=== PATIENT | female | born 1940 | race Caucasian/White ===

== ENCOUNTER 2018-02-07 13:55 | Observation (INO) ==
--- NOTE | 2018-02-07 14:07 | Emergency Department Note ---
Disposition Clinical Impression: Syncope, Orthostasis Disposition: Admitted As Inpatient Instructions: Dehydration (ED), Syncope (ED), Hypotension (ED) Referrals: Stephanie Nuñez MD [Primary Care Provider] - Forms: ED Satisfaction Letter General Adult HPI - General Chief complaint: ED Syncope Stated complaint: syncopal episode Time Seen by Provider: 02/07/18 14:03 - History of Present Illness Pain Scale: 0 - Related Data Allergies Allergy/AdvReac Type Severity Reaction Status Date / Time metronidazole [From Flagyl] Allergy Seizure Verified 02/07/18 14:03 morphine Allergy Palpitation Verified 02/07/18 14:03 s Sulfa (Sulfonamide Allergy Anaphylaxis Verified 02/07/18 14:03 Antibiotics) most genergic drugs Allergy Anaphylaxis Uncoded 03/01/16 11:46 pt states mutiple allergies Allergy Anaphylaxis Uncoded 02/07/18 16:53 she kno steroids AdvReac Dizziness Uncoded 02/07/18 16:53 Past Medical History - Past Medical History Medical history: Reports: arthritis, CVA, hyperlipidemia, hypertension, thyroid disease Psychiatric history: Reports: other - Social History Smoking Status: Never smoker Smokeless Tobacco Status: No Alcohol use: Reports: none Drug use: Reports: none Course Vital Signs Temperature 98.4 F 02/07/18 14:01 Pulse Rate 64 02/07/18 14:01 Respiratory Rate 16 02/07/18 14:01 Blood Pressure 118/72 02/07/18 14:01 O2 Sat by Pulse Oximetry 96 02/07/18 14:01 Temperature 98.4 F 02/07/18 14:30 Pulse Rate 78 02/07/18 16:12 Respiratory Rate 16 02/07/18 14:30 Blood Pressure 137/54 02/07/18 16:12 O2 Sat by Pulse Oximetry 96 02/07/18 14:30 Oxygen Delivery Oxygen Delivery Room Air Medical Decision Making - Lab Data Result diagrams: 02/07/18 14:20 02/07/18 14:20 Lab Results 02/07/18 02/07/18 Range/Units 14:20 14:20 WBC 4.1 L (4.3-11.1) K/mcL RBC 4.38 (3.82-4.97) M/mcL Hgb 14.0 (11.5-15.4) g/dL Hct 40.7 (35.3-44.9) % MCV 92.9 (83.0-100.0) fL MCH 32.0 (28.0-33.3) pg MCHC 34.4 (31.6-35.5) g/dL RDW 12.5 (11.5-14.5) % Plt Count 171 (140-400) K/mcL MPV 10.4 (9.4-12.4) fL Immature Gran % 0.2 (0-4) % Seg Neutrophils % 58.6 % Lymphocytes % 26.2 % Monocytes % 12.4 % Eosinophils % 2.4 % Basophils % 0.2 % Neutrophils # 2.4 (1.6-8.9) K/mcL Lymphocytes # 1.1 (0.6-4.6) K/mcL Monocytes # 0.5 (0.0-1.3) K/mcL Eosinophils # 0.1 (0.0-0.6) K/mcL Basophils # 0.0 (0.0-0.2) K/mcL Sodium 138 (136-145) mEq/L Potassium 4.1 (3.5-5.1) mEq/L Chloride 106 (98-107) mEq/L Carbon Dioxide 24 (23-29) mEq/L BUN 13 (8-23) mg/dL Creatinine 0.57 L (0.60-1.20) mg/dL Est GFR ( Amer) > 60 (> 60) Est GFR (Non-Af Amer) > 60 (> 60) BUN/Creatinine Ratio 23 (6-26) Glucose 95 (70-105) mg/dL Calculated Osmolality 286 (280-300) Calcium 8.9 (8.6-10.3) mg/dL Troponin I < 0.03 (< 0.04) ng/mL TSH 0.454 (0.340-5.600) mcIU/mL Attestation Statement - Attestation Attestation: I examined this patient and my medical decision-making was reviewed with the Resident Physician. I agree with the documented findings, disposition and treatment plan as described except to the extent set forth below. [id number] time provided Patient sustained a syncopal event just prior to arrival. She appears in no acute distress upon arrival by wheelchair. This patient was evaluated in conjunction with the resident physician 16:50: The patient is dizzy and near syncopal upon standing. Labs reviewed by me. Given ongoing symptomatology we will request admission to the medicine service
[2018-02-07] MEDS ORDERED: 0.9 % Sodium Chloride 1,000 ML IVC ONE (14:20)
--- NOTE | 2018-02-07 14:26 | Emergency Department Note ---
Disposition Clinical Impression: Orthostasis Syncope Qualifiers: Syncope type: unspecified Qualified Code(s): R55 - Syncope and collapse Disposition: Admitted As Inpatient Instructions: Dehydration (ED), Syncope (ED), Hypotension (ED) Referrals: Stephanie Nuñez MD [Primary Care Provider] - Forms: ED Satisfaction Letter General Adult HPI - General Chief complaint: ED Syncope Stated complaint: syncopal episode Time Seen by Provider: 02/07/18 14:03 Source: patient Mode of arrival: private vehicle Limitations: no limitations Nursing Notes Reviewed: Yes Vital Signs Reviewed: Yes - History of Present Illness HPI Narrative: Patient is an 78-year-old female with past medical history including hypertension, hyperlipidemia, CVA, who presents with a chief complaint of syncope. Patient states she was recently taken off her Tenormin she was having episodes of hypotension and lightheadedness. She states blood pressures at home have been increased in size systolic pressure 160. She told her physician this and he told her to restart her Tenormin. She states she restarted this 2 days ago. Today she woke up around 0 920 into her living room she is feeling lightheaded. She complains of tunnel vision, blurry vision and nausea. She sat down in the chair and she believes she passed out for a period of time. She is not sure what happened. She denies any falls or hitting her head. She also complains of nonradiating mild substernal chest discomfort after the episode. No shortness of breath. She was able to then get up and use the restroom. When she got up from the toilet she again felt very lightheaded but did not pass out at this time. She called her friend to take her to the emergency department. Pain Scale: 0 - Related Data Home Medications Medication Instructions Recorded Confirmed Atenolol [Tenormin] 25 mg PO DAILY 02/07/18 02/07/18 LORazepam [Ativan] 0.5 mg PO BID PRN 02/07/18 02/07/18 Levothyroxine [Synthroid] 100 mcg PO 0630 02/07/18 02/07/18 Phenytoin ER [Dilantin ER] 200 mg PO BID 02/07/18 02/07/18 Allergies Allergy/AdvReac Type Severity Reaction Status Date / Time metronidazole [From Flagyl] Allergy Seizure Verified 02/07/18 14:03 morphine Allergy Palpitation Verified 02/07/18 14:03 s Sulfa (Sulfonamide Allergy Anaphylaxis Verified 02/07/18 14:03 Antibiotics) most genergic drugs Allergy Anaphylaxis Uncoded 03/01/16 11:46 pt states mutiple allergies Allergy Anaphylaxis Uncoded 02/07/18 16:53 she kno steroids AdvReac Dizziness Uncoded 02/07/18 16:53 All systems ED: reviewed and negative except as stated. Review of Systems: As Per HPI Constitutional: Denies: fever, chills Eyes: Reports: other (tunnel vision). Denies: eye pain ENT ED: Denies: throat pain, congestion Cardiovascular: Reports: chest pain, syncope. Denies: palpitations Respiratory: Denies: cough, dyspnea Gastrointestinal: Reports: nausea. Denies: abdominal pain, vomiting, diarrhea Genitourinary: Denies: urgency, dysuria Musculoskeletal: Denies: back pain Integumentary: Denies: rash Neurological: Denies: headache, paresthesias, abnormal gait Allergic/Immunologic: Denies: itchy eyes Past Medical History - Past Medical History Attestation: Yes The following information was validated with the patient. Source: patient Medical history: Reports: arthritis, CVA, hyperlipidemia, hypertension, thyroid disease Psychiatric history: Reports: other - Social History Smoking Status: Never smoker Smokeless Tobacco Status: No Alcohol use: Reports: none Drug use: Reports: none Physical Exam - General Limitations: no limitations General appearance: alert, in no apparent distress - Head Head exam: atraumatic, normocephalic - Eye Eye exam: Present: normal appearance, PERRL, EOMI - Chest Chest inspection: Present: symmetric chest wall rise. Absent: tenderness - Respiratory Respiratory exam: Present: normal lung sounds bilaterally. Absent: respiratory distress, wheezes, accessory muscle use - Cardiovascular Cardiovascular exam: Present: regular rate, normal rhythm, normal heart sounds, other (no JVD. Radial pulss equal bilaterally) - Abdominal Exam Abdominal exam: Present: soft, Non-Tender. Absent: distention - Extremities Exam Extremities exam: Absent: tenderness, pedal edema - Neurological Exam Neurological exam: Present: alert, oriented X3, CN II-XII intact - Expanded Neurological Exam Patient oriented to: Present: person, place, time Speech: Present: fluid speech Cranial nerves: EOM function (II, III, IV, ): Normal, facial sensation (V): Normal, facial palsy (VII): Normal, spinal accessory function (XI): Normal, tongue deviation (XII): Normal Cerebellar function: finger to nose: Normal, heel to weller: Normal Motor strength - LUE: 5/5 Motor strength - RUE: 5/5 Motor strength - LLE: 5/5 Motor strength - RLE: 5/5 Upper motor neuron exam: erin neglect: Absent bilaterally Sensory exam upper extremity: light touch: Normal Sensory exam lower extremity: light touch: Normal - Psychiatric Psychiatric exam: Present: normal affect, normal mood - Skin Skin exam: Present: warm, dry. Absent: diaphoresis, pallor Course Vital Signs Temperature 98.4 F 02/07/18 14:01 Pulse Rate 64 02/07/18 14:01 Respiratory Rate 16 02/07/18 14:01 Blood Pressure 118/72 02/07/18 14:01 O2 Sat by Pulse Oximetry 96 02/07/18 14:01 Temperature 98.4 F 02/07/18 14:30 Pulse Rate 78 02/07/18 16:12 Respiratory Rate 16 02/07/18 14:30 Blood Pressure 137/54 02/07/18 16:12 O2 Sat by Pulse Oximetry 96 02/07/18 14:30 Oxygen Delivery Oxygen Delivery Room Air Medical Decision Making - MDM Narrative Medical decision making narrative: Patient is presenting with syncope. She has restarted her Tenormin 2 days ago. It was initially discontinued for hypotension. Her symptoms are most likely secondary to orthostatic hypotension from the Tenormin. We will obtain orthostatic blood pressures. Give her IV fluids. Check CBC, BMP, troponin, EKG. Patient is on synthroid and will also check TSH. Aspirin given as patient is complaining of mild chest discomfort. Her HEART score is a 4. Do not suspect a cardiac event given the presentation of her symptoms. EKG with new right bundle branch block compared to previous in November 2017. No evidence of acute ischemia. 15:35 Patient responding to IVFs. She is feeling much better and denies lightheadedness, chest pain, or shortness of breath. Labs reviewed. Troponin is less than 0.03. No electrolyte abnormalities. TSH within normal limits. Patient has remained normotensive while in the ER. We will still need to receive orthostatic vital signs and blood pressures. 16:30 During orthostatic vital signs, the patient became lightheaded which improved with sitting. Ambulated the patient. After approximately 5 steps, the patient became very lightheaded and developed a headache. She states she was going to pass out. She cannot further ambulate. She required additional help bring her back to the bed. Patient did not lose consciousness. Will admit the patient for syncope and orthostatics secondary to beta maninder. Hospitalist consulted. 17:00 Discussed with hospitalist. Will get CXR. No further recommendations. She will be admitted for further workup and management of syncope. - Medical Records Medical records reviewed: Yes I reviewed the patient's medical records. - Lab Data Lab results reviewed: Yes I reviewed the patient's lab results. Result diagrams: 02/07/18 14:20 02/07/18 14:20 Lab Results 02/07/18 02/07/18 Range/Units 14:20 14:20 WBC 4.1 L (4.3-11.1) K/mcL RBC 4.38 (3.82-4.97) M/mcL Hgb 14.0 (11.5-15.4) g/dL Hct 40.7 (35.3-44.9) % MCV 92.9 (83.0-100.0) fL MCH 32.0 (28.0-33.3) pg MCHC 34.4 (31.6-35.5) g/dL RDW 12.5 (11.5-14.5) % Plt Count 171 (140-400) K/mcL MPV 10.4 (9.4-12.4) fL Immature Gran % 0.2 (0-4) % Seg Neutrophils % 58.6 % Lymphocytes % 26.2 % Monocytes % 12.4 % Eosinophils % 2.4 % Basophils % 0.2 % Neutrophils # 2.4 (1.6-8.9) K/mcL Lymphocytes # 1.1 (0.6-4.6) K/mcL Monocytes # 0.5 (0.0-1.3) K/mcL Eosinophils # 0.1 (0.0-0.6) K/mcL Basophils # 0.0 (0.0-0.2) K/mcL Sodium 138 (136-145) mEq/L Potassium 4.1 (3.5-5.1) mEq/L Chloride 106 (98-107) mEq/L Carbon Dioxide 24 (23-29) mEq/L BUN 13 (8-23) mg/dL Creatinine 0.57 L (0.60-1.20) mg/dL Est GFR ( Amer) > 60 (> 60) Est GFR (Non-Af Amer) > 60 (> 60) BUN/Creatinine Ratio 23 (6-26) Glucose 95 (70-105) mg/dL Calculated Osmolality 286 (280-300) Calcium 8.9 (8.6-10.3) mg/dL Troponin I < 0.03 (< 0.04) ng/mL TSH 0.454 (0.340-5.600) mcIU/mL - Radiology Data Radiology results reviewed: Yes I reviewed the patient's radiology results. Chest X-Ray 02/07/18 17:00 IMPRESSION: No evidence of edema or pneumonia. Borderline heart size, unchanged. D/ / Todd Grayson MD / Todd Grayson MD Interpreting Provider: Todd Grayson MD - EKG Data EKG #1 EKG attestation: Yes I reviewed and interpreted this EKG. EKG results narrative: EKG on 02/07/2018 at 1411 shows sinus rhythm with heart rate 60. CA interval 190. QT 428. QTC 428. Right bundle branch block. No evidence of acute ischemia. Compared to EKG on 12/06/2017. The right bundle-branch block is new from prior. Heart Score - Score History: Slightly Suspicious EKG: Normal Age: Greater than 65 Risk Factors: Equal/Greater than 3 risk factor or history of atherosclerotic disease Troponin: Less than normal limit HEART Score Total: 4
[2018-02-07] MEDS ORDERED: Aspirin 325 MG TABLET PO ONE (14:28)
[2018-02-07 15:03] LABS: Basophils % 0.2 %; Eosinophils # 0.1 K/mcL (0.0-0.6); Eosinophils % 2.4 %; Hematocrit 40.7 % (35.3-44.9); Immature Granulocytes % 0.2 % (0-4); Lymphocytes # 1.1 K/mcL (0.6-4.6); Lymphocytes % 26.2 %; Mean Corpuscular HGB Conc 34.4 g/dL (31.6-35.5); Mean Corpuscular Volume 92.9 fL (83.0-100.0); Mean Platelet Volume 10.4 fL (9.4-12.4); Monocytes # 0.5 K/mcL (0.0-1.3); Monocytes % 12.4 %; Neutrophils # 2.4 K/mcL (1.6-8.9); Platelet Count 171 K/mcL (140-400); Red Blood Count 4.38 M/mcL (3.82-4.97); Red Cell Distribution Width 12.5 % (11.5-14.5); Segmented Neutrophils % 58.6 %
[2018-02-07 15:31] LABS: BUN/Creatinine Ratio 23 (6-26); Blood Urea Nitrogen 13 mg/dL (8-23); Calcium 8.9 mg/dL (8.6-10.3); Carbon Dioxide 24 mEq/L (23-29); Chloride 106 mEq/L (98-107); Glucose 95 mg/dL (70-105); Osmolality,Calculated 286 (280-300); Potassium 4.1 mEq/L (3.5-5.1); Sodium 138 mEq/L (136-145); eGFR For Non-African Americans > 60 (> 60)
[2018-02-07 15:32] LABS: Troponin I < 0.03 ng/mL (< 0.04)
[2018-02-07 15:45] LABS: Thyroid Stimulating Hormone 0.454 mcIU/mL (0.340-5.600)
[2018-02-07] MEDS ORDERED: Naloxone 0.4 MG/ML INJ IVP PRN (17:09)
[2018-02-07 17:37] LABS: Phenytoin (Dilantin) 8.9 mcg/mL (10.0-20.0)
--- NOTE | 2018-02-07 17:52 | Internal Med History&Physical ---
Date of Encounter: 02/07/18 Time of Encounter: 17:30 Internal Medicine - H&P: HPI Chief complaint: pre-syncope Admitted From: Home History of present illness: Ms. Rodriguez is a 78 year old female with history of hypertension, hyperlipidemia, CVA without any residual deficits, seizure, presented to the ED with lightheadedness. Patient states that it happened this morning while she was sitting in her front room. She states that she does not have recollection of the events for about 5 minutes but unsure about loss of consciousness. Nevertheless, she did not fall or suffered head injury as she remained sitting. She was recently taken off her Tenormin as she was having episodes of hypotension but was started back on it 3 days ago as her BP started to increase. She has also noted that she is now needing a cane for ambulation for the last 2 minutes and has intermittent tingling and numbness of her legs. Denies any headache, slurring of speech, facial droop, or dysphagia. Denies any chest pain, service of breath, palpitation, orthopnea, PND, or leg swelling. No fever/chills, nausea/vomiting, cough, sputum production, abdominal pain, change in bowel habits, dysuria or sick contacts. In the ED, she was afebrile and hemodynamically stable. Labs were unremarkable except for mild leukopenia. Normal TSH and troponin. She was given 1 L of IV fluid after which she has felt better. She attempted to ambulate but had recurrence of symptoms. She was admitted for further management. Past Med Surg Social Fam HX - Past Medical History Attestation: Yes The following information was validated with the patient. Medical history: arthritis, CVA, hyperlipidemia, hypertension, seizures, thyroid disease Psychiatric history: other - Past Surgical History Additional surgical history: Multiple Tumors Removed. Knee Replacement. Bladder Tuck. Foot Surgery - Social History Smoking Status: Never smoker Smokeless Tobacco Status: No Alcohol use: none Drug use: none Internal Medicine - H&P: Meds Atenolol [Tenormin] 25 mg PO DAILY 02/07/18 [History] LORazepam [Ativan] 0.5 mg PO BID PRN 02/07/18 [History] Levothyroxine [Synthroid] 100 mcg PO 0630 02/07/18 [History] Phenytoin ER [Dilantin ER] 200 mg PO BID 02/07/18 [History] 3 Allergy/AdvReac Type Severity Reaction Status Date / Time metronidazole [From Flagyl] Allergy Seizure Verified 02/07/18 14:03 morphine Allergy Palpitation Verified 02/07/18 14:03 s Sulfa (Sulfonamide Allergy Anaphylaxis Verified 02/07/18 14:03 Antibiotics) most genergic drugs Allergy Anaphylaxis Uncoded 03/01/16 11:46 pt states mutiple allergies Allergy Anaphylaxis Uncoded 02/07/18 16:53 she kno steroids AdvReac Dizziness Uncoded 02/07/18 16:53 All Systems PM: A 10-system review of systems was performed and is negative for pertinent findings except as documented above in the HPI. - Constitutional Vitals: Temp Pulse Resp BP Pulse Ox 98.4 F 78 16 137/54 96 02/07/18 14:30 02/07/18 16:12 02/07/18 14:30 02/07/18 16:12 02/07/18 14:30 Exam: General: Alert and oriented, not in acute distress. HEENT:EOM, pupils equal, round and reactive. Anicteric sclera Cardiovascular:Normal S1 & S2, No JVD. Pulse regular. Lungs: clear to auscultation, no wheezes/rales Abdomen:Soft, non-tender, no rigidity. Extremities:No deformity or swelling Neurological: CN II-XII intact, power and sensation full on all 4 limbs. No pronator drift. No cerebellar signs. Babinski downgoing bilaterally. Skin:Normal color, no rash, no lesions. Pulses:Carotid and radial pulses normal +2. Rest of the physical exam is non contributory Internal Med - H&P Results - Labs CBC & Chem 7: 02/07/18 14:20 02/07/18 14:20 - Assessment and plan (1) Pre-syncope Current Visit: Yes Status: Acute Assessment and plan: Unclear etiology, may have been related to orthostasis but the orthostatic vitals were checked (which was normal) after IV fluid was given. No evidence of acute kidney injury however. Complains of LE numbness and tingling, will check B12 check 1 more troponin to rule out ACS Last echo 2 years showed mild AR, repeat telemetry overnight PT/OT (2) Hypertension Current Visit: Yes Status: Acute Assessment and plan: Monitor off Tenormin When necessary labetalol Qualifiers: Hypertension type: essential hypertension Qualified Code(s): I10 - Essential (primary) hypertension (3) Seizure Current Visit: Yes Status: Acute Assessment and plan: dilantin level low normal continue phenytoin (4) DVT prophylaxis Current Visit: Yes Status: Acute Assessment and plan: SQ heparin - Time Spent With Patient Total time spent is greater than 50% in coordination of care (as documented) at patient's floor/unit and/or counseling patient:
[2018-02-07] MEDS ORDERED: *HR* Labetalol 20 MG/4 ML SYRINGE IVP PRN (17:55)
[2018-02-07] MEDS: *HR* Heparin 5,000 UNIT/ML VIAL SQ SCH (21:29)
[2018-02-08] MEDS: *HR* Heparin 5,000 UNIT/ML VIAL SQ SCH ×2 (05:52→17:33)
[2018-02-08 06:46] LABS: Basophils % 0.2 %; Eosinophils # 0.1 K/mcL (0.0-0.6); Eosinophils % 2.9 %; Hematocrit 38.6 % (35.3-44.9); Hemoglobin 13.2 g/dL (11.5-15.4); Immature Granulocytes % 0.2 % (0-4); Lymphocytes # 1.9 K/mcL (0.6-4.6); Lymphocytes % 39.7 %; Mean Corpuscular HGB Conc 34.2 g/dL (31.6-35.5); Mean Corpuscular Hemoglobin 31.6 pg (28.0-33.3); Mean Corpuscular Volume 92.3 fL (83.0-100.0); Mean Platelet Volume 10.7 fL (9.4-12.4); Monocytes # 0.5 K/mcL (0.0-1.3); Monocytes % 9.5 %; Neutrophils # 2.3 K/mcL (1.6-8.9); Platelet Count 157 K/mcL (140-400); Red Blood Count 4.18 M/mcL (3.82-4.97); Red Cell Distribution Width 12.5 % (11.5-14.5); Segmented Neutrophils % 47.5 %
[2018-02-08] MEDS: Cyanocobalamin (B-12) 1,000 MCG TABLET PO SCH (08:51)
--- NOTE | 2018-02-08 11:00 | Internal Med Progress Note ---
Hospitalist Progress Note - Encounter Date of Encounter: 02/08/18 Time of Encounter: 09:25 - Subjective Interval History: Reports no new complaints, has not ambulated with the therapist yet. No chest pain, palpitation, worsening lightheadedness, or cough. - Exam Vitals: Temp Pulse Resp BP Pulse Ox 98.0 F 58 16 135/65 94 02/08/18 07:26 02/08/18 07:26 02/08/18 07:26 02/08/18 07:26 02/08/18 08:56 Exam: General: Alert and oriented, not in acute distress. Eyes: PERRL, no nystagmus Cardiovascular:Normal S1 & S2, No JVD. Pulse regular. Lungs: clear to auscultation, no wheezes/rales Abdomen:Soft, non-tender, no rigidity. Extremities:No deformity or swelling Neurological: CN II-XII intact, power and sensation full on all 4 limbs. No pronator drift. No cerebellar signs. Babinski downgoing bilaterally. - Assessment and Plan (1) Pre-syncope Current Visit: Yes Status: Acute Assessment and Plan: Unclear etiology, may have been related to orthostasis but the orthostatic vitals were checked (which was normal) after IV fluid was given. No evidence of acute kidney injury however. ACS ruled out Complains of LE numbness and tingling, B12 is noted to be low possibly related to her peripheral neuropathy, decreased proprioception, and orthostasis Start B12 supplementation Echo pending PT/OT for discharge planning (2) Hypertension Current Visit: Yes Status: Acute Assessment and Plan: normal off Tenormin When necessary labetalol (3) Seizure Current Visit: Yes Status: Acute Assessment and Plan: dilantin level low normal, which is not new forthe patient continue phenytoin (4) DVT prophylaxis Current Visit: Yes Status: Acute Assessment and Plan: SQ heparin - Time Spent with Patient Total time spent is greater than 50% in coordination of care (as documented) at patient's floor/unit and/or counseling patient: Plan of Care Discussed with: patient Internal Medicine: Result - Labs CBC & Chem 7: 02/08/18 06:27 02/07/18 14:20 Labs: Short CBC 02/08/18 Range/Units 06:27 WBC 4.9 (4.3-11.1) K/mcL Hgb 13.2 (11.5-15.4) g/dL Hct 38.6 (35.3-44.9) % Plt Count 157 (140-400) K/mcL Neutrophils # 2.3 (1.6-8.9) K/mcL Cardiac Enzymes 02/07/18 Range/Units 21:03 Troponin I < 0.03 (< 0.04) ng/mL Consult Discharge Plan - Plan Referrals: Stephanie Nuñez MD [Primary Care Provider] - (Hospital follow up appointment requested. Office will call you with date and time of appointment. ) (2) Hypertension Qualifiers: Hypertension type: essential hypertension Qualified Code(s): I10 - Essential (primary) hypertension
[2018-02-08] MEDS: *HR* LORazepam 0.5 MG TABLET PO PRN ×2 (17:41→23:08)
[2018-02-09] MEDS: *HR* Heparin 5,000 UNIT/ML VIAL SQ SCH (05:34)
[2018-02-09] MEDS: Cyanocobalamin (B-12) 1,000 MCG TABLET PO SCH (10:10)
[2018-02-09 11:45] VITALS: BP 138/64
--- NOTE | 2018-02-09 11:52 | Discharge Summary ---
- NOTES TO OUTPATIENT PROVIDER Notes to Outpatient Provider: Patient was admitted for near-fall episode secondary to bilateral lower extremity numbness/paresthesia due to newly diagnosed B12 deficiency. PT/OT deemed that patient was safe to be discharged back home without further need for therapy. Started on oral supplementation with outpatient follow up. Date of Encounter: 02/09/18 Time of Encounter: 10:30 - Discharge Diagnosis (1) Pre-syncope Priority: Primary Status: Acute (2) Hypertension Priority: Secondary Status: Acute Qualifiers: Hypertension type: essential hypertension Qualified Code(s): I10 - Essential (primary) hypertension (3) Seizure Priority: Secondary Status: Acute (4) Vitamin B12 deficiency Priority: Secondary Status: Acute (5) DVT prophylaxis Priority: Secondary Status: Acute Hospital course: Ms. Rodriguez is a 78 year old female with PMHx of HTN, HLD, CVA without residual deficits, seizure, was admitted for near-fall episode secondary to bilateral lower extremity numbness/paresthesia due to newly diagnosed B12 deficiency. PT/ OT deemed that patient was safe to be discharged back home without further need for therapy. Started on oral supplementation with outpatient follow up. Discharge discussed with: patient, nurse - Time Spent with Patient Total time spent providing and/or coordinating discharge services: Greater than 30 minutes - Discharge Medications Prescriptions: Cyanocobalamin (B-12) [Vitamin B12] 1,000 mcg PO DAILY #30 tablet Home Medications: LORazepam [Ativan] 0.5 mg PO BID PRN 02/07/18 [History] Levothyroxine [Synthroid] 100 mcg PO 0630 02/07/18 [History] Phenytoin ER [Dilantin ER] 200 mg PO BID 02/07/18 [History] Cyanocobalamin (B-12) [Vitamin B12] 1,000 mcg PO DAILY #30 tablet 02/09/18 [Rx] Allergies/Adverse Reactions: 3 Allergy/AdvReac Type Severity Reaction Status Date / Time metronidazole [From Flagyl] Allergy Seizure Verified 02/07/18 14:03 morphine Allergy Palpitation Verified 02/07/18 14:03 s Sulfa (Sulfonamide Allergy Anaphylaxis Verified 02/07/18 14:03 Antibiotics) most genergic drugs Allergy Anaphylaxis Uncoded 03/01/16 11:46 pt states mutiple allergies Allergy Anaphylaxis Uncoded 02/07/18 16:53 she kno steroids AdvReac Dizziness Uncoded 02/07/18 16:53 Date of admission: 02/07/18 17:19 Primary care physician: Stephanie Nuñez MD - Constitutional Vitals: Temp Pulse Resp BP Pulse Ox 97.8 F 76 18 138/64 97 02/09/18 11:43 02/09/18 11:43 02/09/18 11:43 02/09/18 11:43 02/09/18 11:43 Exam: General: Alert and oriented, not in acute distress. Eyes: PERRL, no nystagmus Cardiovascular:Normal S1 & S2, No JVD. Pulse regular. Lungs: clear to auscultation, no wheezes/rales Abdomen:Soft, non-tender, no rigidity. Extremities:No deformity or swelling Neurological: CN II-XII intact, power and sensation full on all 4 limbs. No pronator drift. No cerebellar signs. Babinski downgoing bilaterally. - Patient Status Disposition: Home, Self-Care Condition: Good Overall status at discharge: patient is progressing back to baseline - Discharge Instructions Instructions: Chronic Hypertension (DC) Follow Up With: Stephanie Nuñez MD [Primary Care Provider] - (Hospital follow up appointment requested. Office will call you with date and time of appointment. ) - Diet and Activity Activity: resume usual activities as tolerated Diet: advance to your usual diet
--- NOTE | 2018-02-10 18:00 | Electrocardiograph Report ---
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
== END 2018-02-09 14:13 | disposition home or self-care (01) ==
LOC: 3BNU 13:55 → EMEROOARM 13:55 → SUATTDRO 17:19 → 3BNU 18:46
PROVIDERS: ADMIT Student in an Organized Health Care Education/Training Program; ATTEND Internal Medicine

== ENCOUNTER 2018-09-27 12:09 | Observation (INO) ==
[2018-09-27] MEDS ORDERED: Isovue-370 500 ML BOTTLE IVP ONE (13:04)
[2018-09-27] MEDS ORDERED: Aspirin 81 MG TAB.CHEW PO ONE (13:07)
--- NOTE | 2018-09-27 13:37 | Emergency Department Note ---
Disposition Clinical Impression: Facial cellulitis Disposition: Admitted As Inpatient Condition: Fair Time of Disposition: 16:30 General Adult HPI - General Chief complaint: ED Chest Pain Stated complaint: Chest Pain Fever Rash Time Seen by Provider: 09/27/18 12:17 Source: patient Mode of arrival: private vehicle Limitations: no limitations Nursing Notes Reviewed: Yes Vital Signs Reviewed: Yes - History of Present Illness HPI Narrative: 78-year-old female with a past medical history of irregular heart rate used to be rate controlled but has not been for quite some time, they came to the emergency department today because she noted some right-sided facial redness and swelling, as well as fevers and chills at home. She is also reporting some midsternal chest pressure, but states that it is not pain. Patient states that she first noted that the right side of her face was red and swollen last night around midnight. Patient is also complaining of fevers that she measured at home at 101.1. She states that she has not taken any pain medication. She is complaining of pain with moving her eyes. Pain Scale: 8 - Related Data Home Medications Medication Instructions Recorded Confirmed LORazepam [Ativan] 0.5 mg PO BID PRN 02/07/18 02/07/18 Levothyroxine [Synthroid] 100 mcg PO 0630 02/07/18 02/07/18 Phenytoin ER [Dilantin ER] 200 mg PO BID 02/07/18 02/07/18 Previous Rx's Medication Instructions Recorded Cyanocobalamin (B-12) [Vitamin B12] 1,000 mcg PO DAILY #30 tablet 02/09/18 Allergies Allergy/AdvReac Type Severity Reaction Status Date / Time metronidazole [From Flagyl] Allergy Seizure Verified 02/07/18 14:03 morphine Allergy Palpitation Verified 02/07/18 14:03 s Sulfa (Sulfonamide Allergy Anaphylaxis Verified 02/07/18 14:03 Antibiotics) most genergic drugs Allergy Anaphylaxis Uncoded 03/01/16 11:46 pt states mutiple allergies Allergy Anaphylaxis Uncoded 02/07/18 16:53 she kno steroids AdvReac Dizziness Uncoded 02/07/18 16:53 Review of Systems: All systems ED: reviewed and negative except as stated. Constitutional: Reports: fever, chills ENT ED: Denies: ear pain, throat pain Cardiovascular: Denies: chest pain, palpitations Reports: chest pressure Respiratory: Denies: cough, dyspnea Gastrointestinal: Denies: abdominal pain, nausea, vomiting, diarrhea, constipation Genitourinary: Denies: urgency, dysuria, frequency Musculoskeletal: Denies: neck pain Reports; back pain Integumentary: Denies: rash, abrasion Neurological: Denies: headache, weakness, numbness, Reports: paresthesias in raman feet, chronic Psychiatric: Denies: anxiety, depression Endocrine: Denies: fatigue, heat or cold intolerance Hematological/Lymphatic: Denies: easy bleeding, easy bruising Allergic/Immunologic: Denies: facial swelling, urticaria Past Medical History - Past Medical History Attestation: Yes The following information was validated with the patient. Medical history: Reports: arthritis, CVA, hyperlipidemia, hypertension, seizures, thyroid disease Psychiatric history: Reports: other - Social History Smoking Status: Never smoker Smokeless Tobacco Status: No Alcohol use: Reports: none Drug use: Reports: none Physical Exam General: A&O x 3. No acute distress. Well developed, well nourished. Head: Right side of face erythematous and swollen from mastoid process to mediolateral aspect of her face. Complete involvement of the pinna. Tenderness over right mastoid process. ENT: No conjunctival injection, no scleral icterus. PERRLA. Pain with EOMI. Oropharynx non- erythematous. mucous membranes moist. Raman TMs non-erythematous, no bulging. Right TM has scant injection. Neuro: No focal deficits, no speech deficit, no facial droop, mentating well. BUE/BLE Str 5/5. Pulm: Lungs CTAB A/P. No wheezes, rales, ronchi. Cardio: RRR no m/r/g. Chest not tender to palpation. Abd: Soft, non-distended. Normoactive bowel sounds. Non-tender to palpation. No guarding. Non rigid. Extremities: Radial pulses 2+ raman, dorsalis pedis/posterior tibialis 2+ raman. No LE edema. No cyanosis, clubbing. Skin: warm, dry, intact. No rashes. Psych: Appropriate mood and affect. Answers questions appropriately. Cooperative with exam. - General Limitations: no limitations General appearance: alert Course Course Narrative: Ddx includes but is not limited to: cellulitis, allergic reaction, abscess, Workup will include: CBC, BMP, Lactic, Facial CT with contrast. Suspect admission for Iv Abx Vital Signs Temperature 99.0 F 09/27/18 12:17 Pulse Rate 74 09/27/18 12:17 Respiratory Rate 18 09/27/18 12:17 Blood Pressure 168/84 09/27/18 12:17 O2 Sat by Pulse Oximetry 97 09/27/18 12:17 Temperature 99.0 F 09/27/18 12:17 Pulse Rate 78 09/27/18 16:16 Respiratory Rate 19 09/27/18 16:16 Blood Pressure 159/60 09/27/18 16:16 O2 Sat by Pulse Oximetry 99 09/27/18 16:16 Oxygen Delivery Oxygen Delivery Room Air Medical Decision Making - MDM Narrative Medical decision making narrative: Pts Facial CT showed superficial soft tissue swelling without any osseous involvement, orbital involvement, or abscess. Pt lives alone, is of an advanced age, and while this condition can generally be managed with outpatient antibiotics, her symptoms came on rather rapidly and she is complaining of fevers/chills. It is likely that she may decompensate and should be admitted to the hospital for IV Abx. Admitted pt to hospitalist, Dr. Peña, who agreed to accept pt to her service. Pts labs and imaging results were shared at bedside. Patient was given an opportunity to ask questions at bedside and all of their concerns were addressed. Patient verbalized understanding and agreement with plan of care. Pt remained stable while in the department. - Medical Records Medical records reviewed: Yes I reviewed the patient's medical records. - Lab Data Lab results reviewed: Yes I reviewed the patient's lab results. Result diagrams: 09/27/18 12:29 09/27/18 12:29 Lab Results 09/27/18 09/27/18 09/27/18 Range/Units 12:29 12:29 13:26 WBC 5.6 (4.3-11.1) K/mcL RBC 4.57 (3.82-4.97) M/mcL Hgb 14.2 (11.5-15.4) g/dL Hct 42.9 (35.3-44.9) % MCV 93.9 (83.0-100.0) fL MCH 31.1 (28.0-33.3) pg MCHC 33.1 (31.6-35.5) g/dL RDW 12.7 (11.5-14.5) % Plt Count 162 (140-400) K/mcL MPV 10.8 (9.4-12.4) fL Immature Gran % 0.2 (0-4) % Seg Neutrophils % 79.1 % Lymphocytes % 10.3 % Monocytes % 9.1 % Eosinophils % 1.1 % Basophils % 0.2 % Neutrophils # 4.4 (1.6-8.9) K/mcL Lymphocytes # 0.6 (0.6-4.6) K/mcL Monocytes # 0.5 (0.0-1.3) K/mcL Eosinophils # 0.1 (0.0-0.6) K/mcL Basophils # 0.0 (0.0-0.2) K/mcL Sodium 135 L (136-145) mEq/L Potassium 4.0 (3.5-5.1) mEq/L Chloride 103 (98-107) mEq/L Carbon Dioxide 26 (23-29) mEq/L BUN 10 (8-23) mg/dL Creatinine 0.58 L (0.60-1.20) mg/dL Est GFR ( Amer) > 60 (> 60) Est GFR (Non-Af Amer) > 60 (> 60) BUN/Creatinine Ratio 17 (6-26) Glucose 90 (70-105) mg/dL Calculated Osmolality 279 L (280-300) Calcium 9.0 (8.6-10.3) mg/dL Troponin I < 0.03 (< 0.04) ng/mL Urine Opiates Screen Negative (Nrkbal=848) ng/mL Ur Barbiturates Screen Negative (Auxsrb=412) ng/mL Ur Phencyclidine Scrn Negative (Cutoff=25) ng/mL Ur Amphetamines Screen Negative (Gdloiq=2953) ng/mL U Benzodiazepines Scrn Negative (Czcegy=332) ng/mL Urine Cocaine Screen Negative (Cutoff= 300) ng/mL U Marijuana (THC) Screen Negative (Cutoff = 50) ng/mL Ur Drug Screen Interp See Below - Radiology Data Radiology results reviewed: Yes I reviewed the patient's radiology results. Face CT 09/27/18 13:04 IMPRESSION: Nonspecific right periauricular skin thickening and subcutaneous inflammatory changes in keeping with cellulitis infectious, inflammatory or posttraumatic etiology. D/ / Krish Palacios / Krish Palacios Interpreting Provider: Krish Palacios Chest X-Ray 09/27/18 13:07 IMPRESSION: No acute abnormality. D/ / Mauricio Alanis MD / Mauricio Alanis MD Interpreting Provider: Mauricio Alanis MD - EKG Data EKG #1 EKG attestation: Yes I reviewed and interpreted this EKG. EKG results narrative: HR 76, rhythm sinus, axis normal. VA 177, QRS 143, QTc 440. RBBB also present on previous study from 02/07/18. PVCs present that were not present on previous study. Attestation Statement - Attestation Attestation: Patient was seen with resident physician. I reviewed the history, physical, assessment and plan, and agree with the findings. I also personally evaluated this patient and had [id number] time with this patient. 78-year-old female presents to the emergency part chief complaint of fevers chi lls and facial swelling and pain. This patient developed pain sometime this morning. She noticed that she had swelling around the right ear the right face and coming down into the angle of the mandible. Was warm to touch and she has had some feverish sensations. Patient also notes an unusual sensation in her chest that started about the same time period she describes this feeling as a fullness and not symmetric pain or pressure. She is also used the term fluttering. No nausea vomiting or diarrhea. Denies other complaints. Review of systems as above remainder negative. Physical exam vital signs are stable. ENT patient appears to have cellulitis of the right ear and right side of the face. Heart regular rate. Lungs clear. Abdomen soft nontender. Extremities unremarkable. Neurologically intact. Skin saline is on the face as noted. Psych normal. ED course. We will get a facial bone CT just to make sure that it is a superficial cellulitis and not a deeper space infection. Patient was started on IV antibiotics. CT scan or confirm cellulitis with no deeper space infections. We also did a cardiac workup which was essentially negative. With this cellulitis involving both the ear and the cheek we felt IV antibiotics were indicated. We contacted the hospitalist service to arrange for admission. I do not make much of the patient's chest symptoms at this point. Her initial cardiac workup was negative. And we will defer to the hospitalist service as to the need for additional workup in that regard. I agree with resident physician assessment and plan.
[2018-09-27 13:46] LABS: Basophils % 0.2 %; Eosinophils # 0.1 K/mcL (0.0-0.6); Eosinophils % 1.1 %; Hematocrit 42.9 % (35.3-44.9); Hemoglobin 14.2 g/dL (11.5-15.4); Immature Granulocytes % 0.2 % (0-4); Lymphocytes # 0.6 K/mcL (0.6-4.6); Lymphocytes % 10.3 %; Mean Corpuscular HGB Conc 33.1 g/dL (31.6-35.5); Mean Corpuscular Hemoglobin 31.1 pg (28.0-33.3); Mean Corpuscular Volume 93.9 fL (83.0-100.0); Mean Platelet Volume 10.8 fL (9.4-12.4); Monocytes # 0.5 K/mcL (0.0-1.3); Monocytes % 9.1 %; Neutrophils # 4.4 K/mcL (1.6-8.9); Platelet Count 162 K/mcL (140-400); Red Blood Count 4.57 M/mcL (3.82-4.97); Red Cell Distribution Width 12.7 % (11.5-14.5); Segmented Neutrophils % 79.1 %
[2018-09-27 13:49] LABS: Amphetamine Screen,Urine Negative ng/mL (Cutoff=1000); Barbiturate Screen,Urine Negative ng/mL (Cutoff=200); Benzodiazepines Screen,Urine Negative ng/mL (Cutoff=200); Cannabinoid Screen,Urine Negative ng/mL (Cutoff = 50); Cocaine Screen,Urine Negative ng/mL (Cutoff= 300); Opiate Screen,Urine Negative ng/mL (Cutoff=300); Phencyclidine Screen,Urine Negative ng/mL (Cutoff=25)
[2018-09-27 13:53] LABS: BUN/Creatinine Ratio 17 (6-26); Blood Urea Nitrogen 10 mg/dL (8-23); Carbon Dioxide 26 mEq/L (23-29); Chloride 103 mEq/L (98-107); Glucose 90 mg/dL (70-105); Osmolality,Calculated 279 (280-300); Sodium 135 mEq/L (136-145); eGFR For Non-African Americans > 60 (> 60)
[2018-09-27 13:54] LABS: Troponin I < 0.03 ng/mL (< 0.04)
[2018-09-27] MEDS ORDERED: cefTRIAXone 2,000 MG in Water for inj. (sterile) 20 ML 20 ML IVP ONE (14:50)
[2018-09-27] MEDS ORDERED: Mag Hydrox/Al Hydrox/Simeth 30 ML UDC PO PRN (17:08)
[2018-09-27] MEDS ORDERED: *HR* Promethazine 25 MG/ML VIAL IVP PRN (17:08)
[2018-09-27] MEDS ORDERED: Naloxone 0.4 MG/ML INJ IVP PRN (17:08)
[2018-09-27] MEDS ORDERED: traMADol 50 MG TABLET PO PRN (17:08)
[2018-09-27] MEDS ORDERED: Ondansetron 4 MG/2 ML VIAL IVP PRN (17:08)
[2018-09-27] MEDS ORDERED: MOM Conc 10 ML UD.LIQ PO PRN (17:08)
--- NOTE | 2018-09-27 17:17 | Internal Med History&Physical ---
Date of Encounter: 09/27/18 Time of Encounter: 17:13 Internal Medicine - H&P: HPI Admitted From: Home Plans for Post Hospital Care: Home History of present illness: Ms. Rodriguez is a 78 year old female with a past medical history of irregular heart beats, CVA, hypothyroidism, seizure disorder, and hypertension/hyperlipidemia who presented to the emergency department today because she noted some right- sided facial redness and swelling, as well as fevers and chills at home. She is also reporting some midsternal chest pressure, but states that it is not pain. Patient states that she first noted that the right side of her face was red and swollen last night around midnight. Patient is also complaining of fevers that she measured at home at 101.1. She states that she has not taken any pain medication. She is complaining of pain with moving her eyes. Patient denies facial trauma or sick contact. She denies prior history of facial infection. While in the ED, patient vital signs were stable, afebrile, normal WBC. Facial CT showed diffuse javad-auricular soft tissue swelling of the right face, she received 1 dose of Rocephin. She is admitted for further evaluation and management. Status discussed with patient, she wishes to full code. Past Med Surg Social Fam HX - Past Medical History Medical history: arthritis, CVA, hyperlipidemia, hypertension, seizures, thyroid disease Psychiatric history: other - Past Surgical History Additional surgical history: Multiple Tumors Removed. Knee Replacement. B ladder Tuck. Foot Surgery - Social History Smoking Status: Never smoker Smokeless Tobacco Status: No Alcohol use: none Drug use: none - Family History Brother Hx Family Cardiac Disorders: Yes (HTN, HLD) Hx Family Respiratory Disorders: No Hx Family Cancer: No Hx Family GI Disorders: No Hx Family Endocrine Disorder: No Hx Family Neuromuscular Disorders: Yes (Parkinson's) Hx Family Neurologic Disorders: No Hx Family HEENT Disorders: No Hx Family Autoimmune Disorders: No Sister Hx Family Cardiac Disorders: No Hx Family Respiratory Disorders: No Hx Family Cancer: No Hx Family GI Disorders: No Hx Family Endocrine Disorder: Yes (DM) Hx Family Neuromuscular Disorders: No Hx Family Neurologic Disorders: No Hx Family HEENT Disorders: No Hx Family Autoimmune Disorders: No Internal Medicine - H&P: Meds LORazepam [Ativan] 0.5 mg PO BID PRN 02/07/18 [History] Levothyroxine [Synthroid] 100 mcg PO 0630 02/07/18 [History] Phenytoin ER [Dilantin ER] 200 mg PO BID 02/07/18 [History] Cyanocobalamin (B-12) [Vitamin B12] 1,000 mcg PO DAILY #30 tablet 02/09/18 [Rx] Allergy/AdvReac Type Severity Reaction Status Date / Time metronidazole [From Flagyl] Allergy Seizure Verified 02/07/18 14:03 morphine Allergy Palpitation Verified 02/07/18 14:03 s Sulfa (Sulfonamide Allergy Anaphylaxis Verified 02/07/18 14:03 Antibiotics) most genergic drugs Allergy Anaphylaxis Uncoded 03/01/16 11:46 pt states mutiple allergies Allergy Anaphylaxis Uncoded 02/07/18 16:53 she kno steroids AdvReac Dizziness Uncoded 02/07/18 16:53 All Systems PM: A 10-system review of systems was performed and is negative for pertinent findings except as documented above in the HPI. Review of systems: REVIEW OF SYSTEMS: CONSTITUTIONAL: No weight loss, fever, chills, weakness or fatigue. HEENT: Eyes: No visual loss, blurred vision, double vision or yellow sclerae. Ears, Nose, Throat: No hearing loss, sneezing, congestion, runny nose or sore throat. SKIN: see HPI. CARDIOVASCULAR: No chest pain, chest pressure or chest discomfort. No palpitations or edema. RESPIRATORY: No shortness of breath, cough or sputum. GASTROINTESTINAL: No anorexia, nausea, vomiting or diarrhea. No abdominal pain or blood. GENITOURINARY: No dysuria, urgency, or frequency. NEUROLOGICAL: No headache, dizziness, syncope, paralysis, ataxia, numbness or tingling in the extremities. No change in bowel or bladder control. MUSCULOSKELETAL: No muscle, back pain, joint pain or stiffness. HEMATOLOGIC: No anemia, bleeding or bruising. LYMPHATICS: No enlarged nodes. No history of splenectomy. PSYCHIATRIC: No history of depression or anxiety. ENDOCRINOLOGIC: No reports of sweating, cold or heat intolerance. No polyuria or polydipsia. - Constitutional Vitals: Temp Pulse Resp BP Pulse Ox 99.0 F 78 18 153/76 99 09/27/18 12:17 09/27/18 16:16 09/27/18 17:11 09/27/18 17:11 09/27/18 16:16 General appearance: Present: A&O X 3 Exam: PHYSICAL EXAMINATION: GENERAL APPEARANCE: The patient is alert, oriented and in no acute distress. HEENT: right facial swelling, worse around the right ear, small area of redness under the right eye. NECK: Supple without lymphadenopathy. HEART: Regular rate and rhythm. LUNGS: No crackles or wheezes are heard. ABDOMEN: Soft, nontender, nondistended with good bowel sounds heard. Inguinal area is normal. EXTREMITIES: Without cyanosis, clubbing or edema. NEUROLOGICAL: Gross nonfocal. SKIN: Warm and dry without any rash. Internal Med - H&P Results - Labs CBC & Chem 7: 09/27/18 12:29 09/27/18 12:29 Labs: Short CBC 09/27/18 Range/Units 12:29 WBC 5.6 (4.3-11.1) K/mcL Hgb 14.2 (11.5-15.4) g/dL Hct 42.9 (35.3-44.9) % Plt Count 162 (140-400) K/mcL Neutrophils # 4.4 (1.6-8.9) K/mcL BMP 09/27/18 12:29 Sodium 135 L Potassium 4.0 Chloride 103 Carbon Dioxide 26 BUN 10 Creatinine 0.58 L Glucose 90 Calcium 9.0 Cardiac Enzymes 09/27/18 Range/Units 12:29 Troponin I < 0.03 (< 0.04) ng/mL - Impressions ITS Impressions Face CT 09/27/18 13:04 IMPRESSION: Nonspecific right periauricular skin thickening and subcutaneous inflammatory changes in keeping with cellulitis infectious, inflammatory or posttraumatic etiology. D/ / Krish Palacios / Krish Palacios Interpreting Provider: Krish Palacios Chest X-Ray 09/27/18 13:07 IMPRESSION: No acute abnormality. D/ / Mauricio Alanis MD / Mauricio Alanis MD Interpreting Provider: Mauricio Alanis MD - Assessment and Plan (1) Facial cellulitis Current Visit: Yes Status: Acute Assessment and plan: 78-year-old female presented with acute onset of right facial swelling/redness, CT of right face showed diffuse soft tissue swelling. Symptoms are consistent with acute cellulitis. Received 1 dose of IV Rocephin at ED. Blood culture ordered. Started patient on IV vancomycin, March the border of redness, monitor progression. (2) Chest pressure Current Visit: Yes Status: Acute Assessment and plan: Patient has no history of CAD, does have risk factors including hypertension, hyperlipidemia, and obesity. Low risk for ACS. Continue cycling troponin, telemetry monitoring, EKG as needed. (3) CVA (cerebral vascular accident) Current Visit: No Status: Chronic Assessment and plan: Continue home aspirin. Qualifiers: CVA mechanism: unspecified Qualified Code(s): I63.9 - Cerebral infarction, unspecified (4) Morbid obesity with BMI of 40.0-44.9, adult Current Visit: No Status: Chronic Assessment and plan: Weight control discussed with patient. (5) Seizure Current Visit: No Status: Acute Assessment and plan: Continue home medication. (6) Vitamin B12 deficiency Current Visit: No Status: Chronic Assessment and plan: Continue vitamin B12 supplement. (7) Hypothyroidism Current Visit: No Status: Chronic Assessment and plan: Repeat TSH in the morning, continue home medication. Qualifiers: Hypothyroidism type: unspecified Qualified Code(s): E03.9 - Hypothyroidism, unspecified (8) DVT prophylaxis Current Visit: No Status: Acute Assessment and plan: Heparin subcutaneous. - Time Spent With Patient Total time spent is greater than 50% in coordination of care (as documented) at patient's floor/unit and/or counseling patient: Greater than 35 minutes
[2018-09-27] MEDS ORDERED: Vancomycin (wt based) 1,000 MG VIAL IVPB SCH (18:00)
[2018-09-27] MEDS: *HR* Heparin 5,000 UNIT/ML VIAL SQ SCH (18:12)
[2018-09-27] MEDS: Acetaminophen 325 MG TABLET PO PRN (22:15)
[2018-09-28] MEDS: Acetaminophen 325 MG TABLET PO PRN ×2 (04:10→18:50)
[2018-09-28 05:33] LABS: Basophils % 0.2 %; Eosinophils % 0.6 %; Hematocrit 40.4 % (35.3-44.9); Hemoglobin 13.2 g/dL (11.5-15.4); Immature Granulocytes % 0.4 % (0-4); Lymphocytes # 0.8 K/mcL (0.6-4.6); Lymphocytes % 16.3 %; Mean Corpuscular HGB Conc 32.7 g/dL (31.6-35.5); Mean Corpuscular Hemoglobin 31.1 pg (28.0-33.3); Mean Corpuscular Volume 95.3 fL (83.0-100.0); Mean Platelet Volume 10.6 fL (9.4-12.4); Monocytes # 0.5 K/mcL (0.0-1.3); Monocytes % 9.5 %; Neutrophils # 3.5 K/mcL (1.6-8.9); Platelet Count 131 K/mcL (140-400); Red Blood Count 4.24 M/mcL (3.82-4.97); Red Cell Distribution Width 12.7 % (11.5-14.5)
[2018-09-28 05:52] LABS: BUN/Creatinine Ratio 20 (6-26); Blood Urea Nitrogen 11 mg/dL (8-23); Calcium 8.5 mg/dL (8.6-10.3); Carbon Dioxide 26 mEq/L (23-29); Chloride 102 mEq/L (98-107); Glucose 98 mg/dL (70-105); Osmolality,Calculated 281 (280-300); Potassium 3.4 mEq/L (3.5-5.1); Sodium 136 mEq/L (136-145); eGFR For Non-African Americans > 60 (> 60)
[2018-09-28] MEDS: *HR* Heparin 5,000 UNIT/ML VIAL SQ SCH ×2 (06:32→17:40)
--- NOTE | 2018-09-28 09:55 | Electrocardiograph Report ---
[address] [place], [place] [address] Test Date: 2018-09-27 Pat Name: Betsy Rodriguez Department: [id number] Room: 3B33 Gender: F Soap Tender: : 1940 Requested By: Esther Correia Order Number: [id number] Reading MD: Valentine Johnson Measurements Intervals [place] Rate: 76 P: 47 NH: 177 QRS: 44 QRSD: 143 T: 37 QT: 391 QTc: 440 Interpretive Statements Sinus rhythm Ventricular premature complex Right bundle branch block Electronically Signed On 09-28-2018 9:54:17 EDT by Valentine Johnson
--- NOTE | 2018-09-28 09:57 | Internal Med Progress Note ---
Hospitalist Progress Note - Encounter Date of Encounter: 09/28/18 Time of Encounter: 09:55 - Subjective Interval History: Patient is seen and examined in the room. Right facial cellulitis is improving with IV antibiotics. She also reported resolved fever and facial pain. - Exam Vitals: Temp Pulse Resp BP Pulse Ox 98.4 F 70 16 115/69 96 09/28/18 07:39 09/28/18 07:39 09/28/18 07:39 09/28/18 07:39 09/28/18 07:39 Exam: PHYSICAL EXAMINATION: GENERAL APPEARANCE: The patient is alert, oriented and in no acute distress. HEENT: right facial swelling, worse around the right ear, small area of redness under the right eye. NECK: Supple without lymphadenopathy. HEART: Regular rate and rhythm. LUNGS: No crackles or wheezes are heard. ABDOMEN: Soft, nontender, nondistended with good bowel sounds heard. Inguinal area is normal. EXTREMITIES: Without cyanosis, clubbing or edema. NEUROLOGICAL: Gross nonfocal. SKIN: Warm and dry without any rash. - Assessment and Plan (1) Facial cellulitis Current Visit: Yes Status: Acute Assessment and Plan: 09/27 78-year-old female presented with acute onset of right facial swelling/redness, CT of right face showed diffuse soft tissue swelling. Symptoms are consistent with acute cellulitis. Received 1 dose of IV Rocephin at ED. Blood culture ordered. Started patient on IV vancomycin, March the border of redness, monitor progression. 09/28 The border of cellulitis is receding, swelling of right face is improving. She has no fever overnight. WBC was normal. Continue IV vancomycin twice a day per pharmacy dosing. (2) Chest pressure Current Visit: Yes Status: Acute Assessment and Plan: Patient has no history of CAD, does have risk factors including hypertension, hyperlipidemia, and obesity. Low risk for ACS. Serial troponin was negative, telemetry monitoring has no acute ST-T change. (3) CVA (cerebral vascular accident) Current Visit: No Status: Chronic Assessment and Plan: Continue home aspirin. (4) Morbid obesity with BMI of 40.0-44.9, adult Current Visit: No Status: Chronic Assessment and Plan: Weight control discussed with patient. (5) Seizure Current Visit: No Status: Acute Assessment and Plan: Continue home medication. (6) Vitamin B12 deficiency Current Visit: No Status: Chronic Assessment and Plan: Continue vitamin B12 supplement. (7) Hypothyroidism Current Visit: No Status: Chronic Assessment and Plan: TSH normal, continue home medication. (8) DVT prophylaxis Current Visit: Yes Status: Acute Assessment and Plan: Heparin subcutaneous. - Time Spent with Patient Total time spent is greater than 50% in coordination of care (as documented) at patient's floor/unit and/or counseling patient: Internal Medicine: Result - Labs CBC & Chem 7: 09/28/18 04:23 09/28/18 04:23 Labs: Short CBC 09/27/18 09/28/18 Range/Units 12:29 04:23 WBC 5.6 4.8 (4.3-11.1) K/mcL Hgb 14.2 13.2 (11.5-15.4) g/dL Hct 42.9 40.4 (35.3-44.9) % Plt Count 162 131 L (140-400) K/mcL Neutrophils # 4.4 3.5 (1.6-8.9) K/mcL BMP 09/27/18 09/28/18 12:29 04:23 Sodium 135 L 136 Potassium 4.0 3.4 L Chloride 103 102 Carbon Dioxide 26 26 BUN 10 11 Creatinine 0.58 L 0.56 L Glucose 90 98 Calcium 9.0 8.5 L Cardiac Enzymes 09/27/18 09/27/18 09/27/18 Range/Units 12:29 17:32 20:04 Troponin I < 0.03 < 0.03 < 0.03 (< 0.04) ng/mL - Impressions Impressions Face CT 09/27/18 13:04 IMPRESSION: Nonspecific right periauricular skin thickening and subcutaneous inflammatory changes in keeping with cellulitis infectious, inflammatory or posttraumatic etiology. D/ / Krish Palacios / Krish Palacios Interpreting Provider: Krish Palacios Chest X-Ray 09/27/18 13:07 IMPRESSION: No acute abnormality. D/ / Mauricio Alanis MD / Mauricio Alanis MD Interpreting Provider: Mauricio Alanis MD Consult Discharge Plan - Plan Referrals: Milka Wheatley, RACHEL [Primary Care Provider] - (3) CVA (cerebral vascular accident) Qualifiers: CVA mechanism: unspecified Qualified Code(s): I63.9 - Cerebral infarction, unspecified (7) Hypothyroidism Qualifiers: Hypothyroidism type: unspecified Qualified Code(s): E03.9 - Hypothyroidism, unspecified
[2018-09-28] MEDS ORDERED: Ibuprofen 600 MG TABLET PO PRN (18:35)
[2018-09-28] MEDS: DILANTIN 100 MG PO SCH (21:02)
[2018-09-29] MEDS: Acetaminophen 325 MG TABLET PO PRN (02:51)
[2018-09-29] MEDS: *HR* Heparin 5,000 UNIT/ML VIAL SQ SCH (04:47)
[2018-09-29] MEDS: DILANTIN 100 MG PO SCH (09:49)
--- NOTE | 2018-09-29 10:18 | Discharge Summary ---
- NOTES TO OUTPATIENT PROVIDER Notes to Outpatient Provider: f/u with PCP within a week. Orders not resulted at time of discharge: Pending orders 09/27/18 17:20 Culture,Blood [BC] Stat 09/29/18 17:00 Vancomycin,Trough Timed Date of Encounter: 09/29/18 Time of Encounter: 10:11 - Discharge Diagnosis (1) Facial cellulitis Priority: Primary Status: Acute (2) Chest pressure Priority: Primary Status: Resolved (3) CVA (cerebral vascular accident) Priority: Secondary Status: Chronic Qualifiers: CVA mechanism: unspecified Qualified Code(s): I63.9 - Cerebral infarction, unspecified (4) Morbid obesity with BMI of 40.0-44.9, adult Priority: Secondary Status: Chronic (5) Seizure Priority: Secondary Status: Chronic (6) Vitamin B12 deficiency Priority: Secondary Status: Chronic (7) Hypothyroidism Priority: Secondary Status: Chronic Qualifiers: Hypothyroidism type: unspecified Qualified Code(s): E03.9 - Hypothyroidism, unspecified (8) DVT prophylaxis Priority: Primary Status: Acute Hospital course: Ms. Rodriguez is a 78 year old female with a past medical history of irregular heart beats, CVA, hypothyroidism, seizure disorder, and hypertension/hyperlipidemia who presented to the emergency department today because she noted some right- sided facial redness and swelling, as well as fevers and chills at home. She is also reporting some midsternal chest pressure, but states that it is not pain. Patient states that she first noted that the right side of her face was red and swollen last night around midnight. Patient is also complaining of fevers that she measured at home at 101.1. She states that she has not taken any pain medication. She is complaining of pain with moving her eyes. Patient denies facial trauma or sick contact. She denies prior history of facial infection. While in the ED, patient vital signs were stable, afebrile, normal WBC. Facial CT showed diffuse javad-auricular soft tissue swelling of the right face. She is admitted for further evaluation and management. Patient was started on IV vancomycin, her facial cellulitis was respiratory improved. With 3 days of treatment, the infection was controlled, skin redness and swelling have improved. She has no fever or white cell count. Patient will be discharged home today, IV antibiotics was changed to oral clindamycin. Patient will follow-up with PCP within a week. Discharge discussed with: patient Time spent discussing smoking cessation with patient: more than 10 minutes - Time Spent with Patient Total time spent providing and/or coordinating discharge services: Time spent: Greater than 30 minutes - Discharge Medications Prescriptions: New Clindamycin HCl 300 mg PO QID #28 capsule Continued Phenytoin ER [Dilantin ER] 200 mg PO BID Levothyroxine [Synthroid] 88 mcg PO 0630 Diclofenac Sodium 1 applic TP BID Home Medications: Levothyroxine [Synthroid] 88 mcg PO 0630 02/07/18 [History] Phenytoin ER [Dilantin ER] 200 mg PO BID 02/07/18 [History] Diclofenac Sodium 1 applic TP BID 09/28/18 [History] Clindamycin HCl 300 mg PO QID #28 capsule 09/29/18 [Rx] Allergies/Adverse Reactions: Allergy/AdvReac Type Severity Reaction Status Date / Time metronidazole [From Flagyl] Allergy Seizure Verified 02/07/18 14:03 morphine Allergy Palpitation Verified 02/07/18 14:03 s Sulfa (Sulfonamide Allergy Anaphylaxis Verified 02/07/18 14:03 Antibiotics) most genergic drugs Allergy Anaphylaxis Uncoded 03/01/16 11:46 pt states mutiple allergies Allergy Anaphylaxis Uncoded 02/07/18 16:53 she kno steroids AdvReac Dizziness Uncoded 02/07/18 16:53 Date of admission: 09/27/18 16:52 Primary care physician: Milka Wheatley, PAC Anticipated date of discharge: 09/29/18 - Constitutional Vitals: Temp Pulse Resp BP Pulse Ox 98.3 F 67 18 169/74 95 09/29/18 07:10 09/29/18 07:10 09/29/18 07:10 09/29/18 07:10 09/29/18 07:10 General appearance: Present: A&O X 3 Exam: PHYSICAL EXAMINATION: GENERAL APPEARANCE: The patient is alert, oriented and in no acute distress. HEENT: right facial swelling, worse around the right ear, small area of redness under the right eye. NECK: Supple without lymphadenopathy. HEART: Regular rate and rhythm. LUNGS: No crackles or wheezes are heard. ABDOMEN: Soft, nontender, nondistended with good bowel sounds heard. Inguinal area is normal. EXTREMITIES: Without cyanosis, clubbing or edema. NEUROLOGICAL: Gross nonfocal. SKIN: Warm and dry without any rash. - Patient Status Disposition: Home, Self-Care Condition: Fair Functional capacity at discharge: independent ambulation Overall status at discharge: patient is progressing back to baseline - Discharge Instructions Follow Up With: Milka Wheatley PAC [Primary Care Provider] - 10/09/18 9:45 am - Diet and Activity Activity: increase activity as tolerated Diet: advance to your usual diet
[2018-09-29 16:11] VITALS: BP 156/75
[2018-09-29] MEDS ORDERED: Aminoglycoside Consult 1 EACH MC ONE (18:57)
== END 2018-09-29 18:58 | disposition home or self-care (01) ==
LOC: EMEROOARM 12:09 → 3BNU 12:09
PROVIDERS: ADMIT Internal Medicine; ATTEND Internal Medicine